=== PATIENT | male | born 1980 | race Caucasian/White ===

== ENCOUNTER 2020-03-28 10:10 | Outpatient (REF) | payer BC, MEDICAID, SELFPAY ==
[2020-03-28 18:52] LABS: Abs Immature Grans 0.01 k/cumm (0.0-0.09); Absolute Basophil Count 0.03 k/cumm (0.0-0.2); Absolute Eosinophil Count 0.17 k/cumm (0.0-0.7); Absolute Monocyte Count 0.62 k/cumm (0.11-0.7); Absolute Neutrophil Count 3.08 k/cumm (1.2-6.7); Basophils % 0.6; Eosinophils % 3.2; HCT 39.8 % (40.0-50.0); HGB 13.1 g/dL (13.5-17.5); Immature Grans % 0.2 %; Lymphocytes % 26.4; Mean Corp. HGB Concentration 32.9 g/dL (32.0-36.0); Mean Corpuscular Hemoglobin 31.7 pg (27.0-33.0); Mean Corpuscular Volume 96.4 fL (80-95); Mean Platelet Volume 13.4 fL (8.0-11.0); Monocytes % 11.7; Neutrophils % 57.9; Platelet Count 168 x1000/uL (130-400); RBC 4.13 m/cumm (4.50-6.00); RBC Distribution Width 12.1 % (11.8-14.1); White Blood Cell Count 5.31 k/cumm (4.4-10.8)
[2020-03-28 19:27] LABS: ALT 33 U/L (16-63); AST 34 U/L (15-37); Albumin 4.2 g/dL (3.4-5.0); Alkaline Phosphatase 92 U/L (46-116); Anion Gap 4.9 mmol/L (3-11); BUN 38 mg/dL (7-18); Bilirubin, Total 0.4 mg/dL (0.2-1.0); CO2 32.1 mmol/L (21.0-32.0); CREATININE 0.81 mg/dL (0.70-1.30); Calcium 9.5 mg/dL (8.5-10.1); Calculated LDL 122 mg/dL (<100); Chloride 104 mmol/L (98-107); Cholesterol 192 mg/dL (<200); Glucose 90 mg/dL (74-106); HDL Cholesterol 59 mg/dL (40-60); Potassium 4.1 mmol/L (3.5-5.1); Sodium 141 mmol/L (136-145); TSH 3.55 uIU/mL (0.36-3.74); Total Protein 7.4 g/dL (6.4-8.2); Triglyceride 57 mg/dL (<150)
== END 2020-03-28 10:30 ==
LOC: NCHCN 10:10
PROVIDERS: Visit Provider Internal Medicine
DX: Z00.00 Encounter for general adult medical examination without abnormal findings (principal); E03.9 Hypothyroidism, unspecified; D53.9 Nutritional anemia, unspecified; G40.209 Localization-related (focal) (partial) symptomatic epilepsy and epileptic syndromes with complex partial seizures, not intractable, without status epilepticus
CPT/HCPCS: 80053; 80061; 84443; 85025

== ENCOUNTER 2020-04-02 14:30 | Outpatient (REF) | payer BC, MEDICARE, MEDICAID, SELFPAY ==
[2020-04-02 19:44] LABS: Anion Gap 5.7 mmol/L (3-11); BUN 34 mg/dL (7-18); CO2 31.3 mmol/L (21.0-32.0); CREATININE 0.81 mg/dL (0.70-1.30); Calcium 10.2 mg/dL (8.5-10.1); Chloride 102 mmol/L (98-107); FREE T4 1.05 ng/dL (0.76-1.46); Glucose 97 mg/dL (74-106); Sodium 139 mmol/L (136-145); TSH 4.72 uIU/mL (0.36-3.74)
== END 2020-04-02 14:50 ==
LOC: NCHCN 14:30
PROVIDERS: Visit Provider Internal Medicine
DX: E03.9 Hypothyroidism, unspecified (principal); D53.9 Nutritional anemia, unspecified; Z51.81 Encounter for therapeutic drug level monitoring
CPT/HCPCS: 80048; 84439; 84443

== ENCOUNTER 2020-04-05 12:39 | Outpatient (REF) | payer BC, MEDICARE, MEDICAID, SELFPAY ==
[2020-04-05 19:28] LABS: Lithium 1.28 mmol/L (0.60-1.20)
== END 2020-04-05 12:59 ==
LOC: NCHCN 12:39
PROVIDERS: Visit Provider Internal Medicine
DX: Z79.899 Other long term (current) drug therapy (principal); Z51.81 Encounter for therapeutic drug level monitoring
CPT/HCPCS: 80178

== ENCOUNTER 2020-10-30 18:52 | Outpatient (REF) | payer BC, MEDICARE, MEDICAID, SELFPAY ==
[2020-10-30 20:18] LABS: Abs Immature Grans 0.01 10^3/uL (0.0-0.06); Absolute Basophil Count 0.06 10^3/uL (0.0-0.2); Absolute Eosinophil Count 0.19 10^3/uL (0.0-0.7); Absolute Lymphocyte Count 1.82 10^3/uL (1.2-3.4); Absolute Monocyte Count 0.79 10^3/uL (0.1-0.8); Absolute Neutrophil Count 3.41 10^3/uL (1.2-6.7); Immature Grans % 0.2; MCH 31.6 pg (27.0-33.0); MCHC 32.5 % (32.0-36.0); MCV 97.1 fL (80-95); MPV 13.4 fL (8.0-11.0); Monocytes % 12.6; Neutrophils % 54.2; Nucleated RBC 0 %; Platelet Count 183 10^3/uL (130-400); RBC 4.12 10^6/uL (4.36-5.78); RDW 12.1 % (11.8-14.1); RDW-SD 43.2 fL; WBC 6.28 10^3/uL (4.4-10.8)
[2020-10-30 20:28] LABS: VALPROIC ACID 50.3 ug/mL (50-100)
== END 2020-10-30 19:12 ==
LOC: NCHCN 18:52
PROVIDERS: PCP Internal Medicine; Visit Provider Internal Medicine
DX: G40.209 Localization-related (focal) (partial) symptomatic epilepsy and epileptic syndromes with complex partial seizures, not intractable, without status epilepticus (principal); Z51.81 Encounter for therapeutic drug level monitoring; Z79.899 Other long term (current) drug therapy
CPT/HCPCS: 80164; 85025

== ENCOUNTER 2021-02-04 08:35 | Outpatient (REF) | payer BC, MEDICARE, MEDICAID, SELFPAY ==
[2021-02-04 15:07] LABS: Absolute Basophil Count 0.05 10^3/uL (0.0-0.2); Absolute Eosinophil Count 0.18 10^3/uL (0.0-0.7); Absolute Lymphocyte Count 1.53 10^3/uL (1.2-3.4); Absolute Monocyte Count 0.51 10^3/uL (0.1-0.8); Absolute Neutrophil Count 2.12 10^3/uL (1.2-6.7); Basophils % 1.1; Eosinophils % 4.1; HCT 42.2 % (40.0-50.0); HGB 13.6 g/dL (13.5-17.5); Lymphocytes % 34.9; MCH 32.1 pg (27.0-33.0); MCHC 32.2 % (32.0-36.0); MCV 99.5 fL (80-95); MPV 13.1 fL (8.0-11.0); Monocytes % 11.6; Neutrophils % 48.3; Nucleated RBC 0 %; Platelet Count 178 10^3/uL (130-400); RBC 4.24 10^6/uL (4.36-5.78); RDW 12.1 % (11.8-14.1); WBC 4.39 10^3/uL (4.4-10.8)
[2021-02-04 15:24] LABS: VALPROIC ACID 52.7 ug/mL (50-100)
[2021-02-04 15:36] LABS: Albumin 4.4 g/dL (3.4-5.0); LDL CHOLESTEROL 136 mg/dL (<100); TSH 2.89 uIU/mL (0.36-3.74)
[2021-02-04 15:37] LABS: Diff Comment PLT Morph Reviewed; RBC Morphology Normal
[2021-02-04 15:55] LABS: FREE T4 0.84 ng/dL (0.76-1.46)
== END 2021-02-04 08:36 | disposition home or self-care (01) ==
LOC: NCHCN 08:35
PROVIDERS: PCP Internal Medicine; Visit Provider Internal Medicine
DX: E03.9 Hypothyroidism, unspecified (principal); F84.0 Autistic disorder; D53.9 Nutritional anemia, unspecified; E46 Unspecified protein-calorie malnutrition; Z51.81 Encounter for therapeutic drug level monitoring
CPT/HCPCS: 83721; 80164; 82040; 84439; 84443; 85025

== ENCOUNTER 2022-01-27 18:26 | Outpatient (REF) | payer MEDICARE, BC, MEDICAID, SELFPAY ==
[2022-01-27 19:44] LABS: HCT 41.8 % (40.0-50.0); HGB 13.4 g/dL (13.5-17.5); MCH 31.4 pg (27.0-33.0); MCHC 32.1 % (32.0-36.0); MCV 97.9 fL (80-95); MPV 13.3 fL (8.0-11.0); Platelet Count 151 10^3/uL (130-400); RBC 4.27 10^6/uL (4.36-5.78); RDW-SD 43.6 fL; WBC 5.47 10^3/uL (4.4-10.8)
[2022-01-27 20:14] LABS: ALT 16 U/L (16-63); AST 15 U/L (15-37); Albumin 4.2 g/dL (3.4-5.0); Alkaline Phosphatase 89 U/L (46-116); Anion Gap 9.6 mmol/L (3-11); BUN 33 mg/dL (7-18); Bilirubin, Total 0.2 mg/dL (0.2-1.0); CO2 28.4 mmol/L (21.0-32.0); CREATININE 0.8 mg/dL (0.70-1.30); Calcium 9.6 mg/dL (8.5-10.1); Calculated LDL 172 mg/dL (<100); Chloride 106 mmol/L (98-107); Cholesterol 241 mg/dL (<200); Glucose 83 mg/dL (74-106); HDL Cholesterol 48 mg/dL (40-60); Sodium 144 mmol/L (136-145); TSH 4.53 uIU/mL (0.36-3.74); Total Protein 7.5 g/dL (6.4-8.2); Triglyceride 107 mg/dL (<150)
== END 2022-01-27 18:27 | disposition home or self-care (01) ==
LOC: NCHCN 18:26
PROVIDERS: PCP Internal Medicine; Visit Provider Internal Medicine
DX: E03.9 Hypothyroidism, unspecified (principal); R63.4 Abnormal weight loss
CPT/HCPCS: 80053; 80061; 85027; 84443

== ENCOUNTER 2023-06-03 17:14 | Outpatient (REF) | payer MEDICARE, BC, MEDICAID, SELFPAY ==
[2023-06-03 19:11] LABS: Abs Immature Grans 0.01 10^3/uL (0.0-0.06); Absolute Basophil Count 0.05 10^3/uL (0.0-0.2); Absolute Eosinophil Count 0.15 10^3/uL (0.0-0.7); Absolute Lymphocyte Count 1.95 10^3/uL (1.2-3.4); Absolute Monocyte Count 0.69 10^3/uL (0.1-0.8); Absolute Neutrophil Count 2.79 10^3/uL (1.2-6.7); Basophils % 0.9; Eosinophils % 2.7; HCT 39.4 % (40.0-50.0); HGB 13.2 g/dL (13.5-17.5); Immature Grans % 0.2; Lymphocytes % 34.6; MCH 32.5 pg (27.0-33.0); MCHC 33.5 % (32.0-36.0); MCV 97 fL (80-95); MPV 12.1 fL (8.0-11.0); Monocytes % 12.2; Neutrophils % 49.4; Platelet Count 202 10^3/uL (130-400); RBC 4.06 10^6/uL (4.36-5.78); RDW 12.3 % (11.8-14.1); RDW-SD 43.8 fL; WBC 5.64 10^3/uL (4.4-10.8)
[2023-06-03 19:24] LABS: ALT 18 U/L (16-63); AST 19 U/L (15-37); Albumin 4.2 g/dL (3.4-5.0); Alkaline Phosphatase 107 U/L (46-116); Anion Gap 4.6 mmol/L (3-11); BUN 35 mg/dL (7-18); Bilirubin, Total 0.3 mg/dL (0.2-1.0); CO2 32.4 mmol/L (21.0-32.0); CREATININE 0.8 mg/dL (0.70-1.30); Calcium 9.8 mg/dL (8.5-10.1); Chloride 107 mmol/L (98-107); Estimated GFR 112.61 (mL/min/1.73m2); Glucose 103 mg/dL (74-106); NT-proBNP 68 pg/mL (<300); Potassium 4.6 mmol/L (3.5-5.1); Sodium 144 mmol/L (136-145); Total Protein 7.7 g/dL (6.4-8.2)
== END 2023-06-03 17:15 | disposition home or self-care (01) ==
LOC: NCHCN 17:14
PROVIDERS: PCP Internal Medicine; Visit Provider Internal Medicine
DX: R60.9 Edema, unspecified (principal); D64.9 Anemia, unspecified
CPT/HCPCS: 80053; 83880; 85025

== ENCOUNTER 2023-10-01 19:33 | Outpatient (REF) | payer MEDICARE, BC, MEDICAID, SELFPAY ==
[2023-10-01 19:18] LABS: Abs Immature Grans 0.01 10^3/uL (0.0-0.06); Absolute Basophil Count 0.04 10^3/uL (0.0-0.2); Absolute Eosinophil Count 0.13 10^3/uL (0.0-0.7); Absolute Lymphocyte Count 1.52 10^3/uL (1.2-3.4); Absolute Monocyte Count 0.57 10^3/uL (0.1-0.8); Absolute Neutrophil Count 2.53 10^3/uL (1.2-6.7); Basophils % 0.8; Eosinophils % 2.7; HGB 13.6 g/dL (13.5-17.5); Immature Grans % 0.2; Lymphocytes % 31.7; MCH 31.9 pg (27.0-33.0); MCHC 33.2 % (32.0-36.0); MCV 96 fL (80-95); MPV 12.2 fL (8.0-11.0); Monocytes % 11.9; Neutrophils % 52.7; Platelet Count 206 10^3/uL (130-400); RBC 4.26 10^6/uL (4.36-5.78); RDW 12.1 % (11.8-14.1); RDW-SD 43.1 fL
[2023-10-01 19:29] LABS: ALT 19 U/L (16-63); AST 17 U/L (15-37); Albumin 4.1 g/dL (3.4-5.0); Alkaline Phosphatase 107 U/L (46-116); Anion Gap 7.2 mmol/L (3-11); BUN 34 mg/dL (7-18); Bilirubin, Total 0.3 mg/dL (0.2-1.0); CO2 27.8 mmol/L (21.0-32.0); CREATININE 0.8 mg/dL (0.70-1.30); Calcium 10.3 mg/dL (8.5-10.1); Calculated LDL 189 mg/dL (<100); Chloride 105 mmol/L (98-107); Cholesterol 262 mg/dL (<200); Estimated GFR 112.61 (mL/min/1.73m2); Glucose 106 mg/dL (74-106); HDL Cholesterol 52 mg/dL (40-60); Potassium 4.5 mmol/L (3.5-5.1); Sodium 140 mmol/L (136-145); Total Protein 7.7 g/dL (6.4-8.2); Triglyceride 109 mg/dL (<150)
[2023-10-01 19:30] LABS: VALPROIC ACID 63.4 ug/mL
== END 2023-10-01 19:34 | disposition home or self-care (01) ==
LOC: NCHCN 19:33
PROVIDERS: PCP Internal Medicine; Visit Provider Internal Medicine
DX: D64.9 Anemia, unspecified (principal); E03.9 Hypothyroidism, unspecified; F84.0 Autistic disorder; Z51.81 Encounter for therapeutic drug level monitoring; Z79.899 Other long term (current) drug therapy; R79.89 Other specified abnormal findings of blood chemistry
CPT/HCPCS: 80053; 80061; 80164; 85025

== ENCOUNTER 2024-09-25 13:31 | Outpatient (REF) | payer MEDICARE, BC, MEDICAID, SELFPAY ==
[2024-09-25 19:19] LABS: HCT 40.2 % (40.0-50.0); HGB 13.2 g/dL (13.5-17.5); MCH 31.6 pg (27.0-33.0); MCHC 32.8 % (32.0-36.0); MCV 96 fL (80-95); MPV 12.1 fL (8.0-11.0); Platelet Count 213 10^3/uL (130-400); RBC 4.18 10^6/uL (4.36-5.78); RDW 12.4 % (11.8-14.1); RDW-SD 43.8 fL; WBC 5.13 10^3/uL (4.4-10.8)
[2024-09-25 19:49] LABS: VALPROIC ACID 44.2 ug/mL
[2024-09-25 19:50] LABS: ALT 17 U/L (16-63); AST 22 U/L (15-37); Albumin 4.1 g/dL (3.4-5.0); Alkaline Phosphatase 102 U/L (46-116); Anion Gap 7.7 mmol/L (3-11); BUN 34 mg/dL (7-18); Bilirubin, Total 0.34 mg/dL (0.2-1.0); CO2 30.3 mmol/L (21.0-32.0); CREATININE 0.8 mg/dL (0.70-1.30); Calcium 10.1 mg/dL (8.5-10.1); Calculated LDL 171 mg/dL (<100); Chloride 106 mmol/L (98-107); Cholesterol 255 mg/dL (<200); Estimated GFR 111.92 (mL/min/1.73m2); Glucose 99 mg/dL (74-106); HDL Cholesterol 63 mg/dL (40-60); Potassium 4.6 mmol/L (3.5-5.1); Sodium 144 mmol/L (136-145); TSH 2.17 uIU/mL (0.36-3.74); Triglyceride 109 mg/dL (<150)
== END 2024-09-25 13:32 | disposition home or self-care (01) ==
LOC: NCHCN 13:31
PROVIDERS: PCP Internal Medicine; Visit Provider Internal Medicine
DX: E03.9 Hypothyroidism, unspecified (principal)
CPT/HCPCS: 80053; 80061; 85027; 80164; 84443

== ENCOUNTER 2025-10-15 21:19 | Outpatient (REF) | payer MEDICARE, BC, MEDICAID, SELFPAY ==
[2025-10-15 19:50] LABS: HCT 39.7 % (40.0-50.0); HGB 12.7 g/dL (13.5-17.5); MCH 31.7 pg (27.0-33.0); MCHC 32.0 % (32.0-36.0); MCV 99 fL (80-95); MPV 11.8 fL (8.0-11.0); Platelet Count 215 10^3/uL (130-400); RBC 4.01 10^6/uL (4.36-5.78); RDW 12.1 % (11.8-14.1); RDW-SD 44.2 fL; WBC 4.77 10^3/uL (4.4-10.8)
[2025-10-15 20:04] LABS: TSH 3.31 uIU/mL (0.55-4.78)
[2025-10-15 20:08] LABS: ALT 15 U/L (10-49); AST 24 U/L (<34); Albumin 4.3 g/dL (3.2-5.0); Alkaline Phosphatase 83 U/L (46-116); Anion Gap 5.8 mmol/L (3-11); BUN 35 mg/dL (9-23); Bilirubin, Total 0.30 mg/dL (0.2-1.2); CO2 31.2 mmol/L (20.0-31.0); Calcium 9.9 mg/dL (8.3-10.6); Chloride 106 mmol/L (98-107); Glucose 99 mg/dL (74-106); Potassium 4.4 mmol/L (3.5-5.1); Sodium 143 mmol/L (136-145); Total Protein 7.3 g/dL (5.7-8.2)
== END 2025-10-15 21:20 | disposition home or self-care (01) ==
LOC: NCHCN 21:19
PROVIDERS: PCP Internal Medicine; Visit Provider Internal Medicine
DX: G80.9 Cerebral palsy, unspecified (principal); E03.9 Hypothyroidism, unspecified; D61.818 Other pancytopenia
CPT/HCPCS: 80053; 85027; 80164; 84443